=== PATIENT | male | born 1945 | race Asian ===

== ENCOUNTER 2017-12-15 16:22 | Inpatient (IN) | payer BC ==
[2017-12-15] MEDS: SODIUM CHLORIDE 0.9% 1L BAG IV* (17:10)
[2017-12-15] MEDS: CEFTRIAXONE 1 GM/50 ML (PMX) 50 ML IVPB (17:10)
[2017-12-15] MEDS: ONDANSETRON 4 MG INJ IV (17:10)
[2017-12-15 17:17] LABS: ADD MAN DIFF? NO
[2017-12-15 17:18] LABS: WHITE BLOOD COUNT 16.4 10^3/ul (4.8-10.8)
[2017-12-15 17:18] LABS: ABNORMAL IP MESSAGE 1; BASOPHIL # 0.1 10^3/ul (0.0-0.1); BASOPHILS % 0.5 % (0.0-2.0); EOSINOPHILS % 0.1 % (0.0-7.0); HEMATOCRIT 37.5 % (42.0-52.0); LYMPHOCYTES # 1.8 10^3/ul (0.8-2.9); LYMPHOCYTES % 11.2 % (15.0-51.0); MEAN CORPUSCULAR HEMOGLOBIN 30.7 pg (29.0-33.0); MEAN CORPUSCULAR HGB CONC 34.7 g/dl (32.0-37.0); MEAN CORPUSCULAR VOLUME 88.7 fl (82.0-101.0); MEAN PLATELET VOLUME 8.4 fl (7.4-10.4); MONOCYTE # 1.7 10^3/ul (0.3-0.9); MONOCYTES % 10.2 % (0.0-11.0); NEUTROPHIL # 12.8 10^3/ul (1.6-7.5); NEUTROPHILS % 77.7 % (39.0-77.0); PLATELET COUNT 241 10^3/UL (140-415); POSITIVE DIFF @See below; RED BLOOD COUNT 4.23 10^6/ul (4.70-6.10)
[2017-12-15] MEDS: ACETAMINOPHEN 325 MG TAB PO (17:19)
[2017-12-15 17:26] LABS: ADD UMIC YES; UR ASCORBIC ACID NEGATIVE (NEGATIVE); UR BILIRUBIN (Dip) NEGATIVE (NEGATIVE); UR BLOOD (Dip) 3+ mg/dL (NEGATIVE); UR CLARITY CLOUDY (CLEAR); UR COLOR YELLOW (YELLOW); UR GLUCOSE (Dip) NEGATIVE (NEGATIVE); UR KETONES (Dip) NEGATIVE (NEGATIVE); UR LEUKOCYTE ESTERASE (Dip) 3+ Leu/ul (NEGATIVE); UR MUCUS FEW /HPF (NONE SEEN); UR NITRITE (Dip) NEGATIVE (NEGATIVE); UR RBC 67 /HPF (0-5); UR SPECIFIC GRAVITY (Dip) 1.013 (1.003-1.030); UR TOTAL PROTEIN (Dip) 2+ mg/dl (NEGATIVE); UR UROBILINOGEN (Dip) 1+ mg/dL (NEGATIVE); UR WBC > 182 /HPF (0-5)
[2017-12-15 17:37] LABS: PROTIME 13.3 Sec (11.9-14.9)
[2017-12-15 17:38] LABS: PARTIAL THROMBOPLASTIN TIME 28.9 Sec (25.0-35.0)
[2017-12-15 18:23] LABS: ALANINE AMINOTRANSFERASE 140 IU/L (13-69); ALBUMIN 4.3 g/dl (3.3-4.9); ALBUMIN/GLOBULIN RATIO 1.26; ALKALINE PHOSPHATASE 133 IU/L (42-121); ANION GAP 19 (8-16); ASPARTATE AMINO TRANSFERASE 132 IU/L (15-46); BILIRUBIN,INDIRECT 0.7 mg/dl (0-1.1); BILIRUBIN,TOTAL 0.7 mg/dl (0.2-1.3); BLOOD UREA NITROGEN 17 mg/dl (7-20); CALCIUM 9.5 mg/dl (8.4-10.2); CARBON DIOXIDE 23 mmol/L (21-31); CHLORIDE 101 mmol/L (97-110); CREATININE 1.73 mg/dl (0.61-1.24); GLUCOSE 136 mg/dl (70-220); POTASSIUM 3.5 mmol/L (3.5-5.1); SODIUM 139 mmol/L (135-144); TOTAL PROTEIN 7.7 g/dl (6.1-8.1)
[2017-12-15] MEDS ORDERED: ACETAMINOPHEN 325 MG TAB PO (18:30)
[2017-12-15] MEDS ORDERED: ONDANSETRON 4 MG INJ IV (18:30)
[2017-12-15 18:34] LABS: LACTIC ACID 2.4 mmol/L (0.5-2.0)
[2017-12-15 18:35] LABS: TROPONIN-I < 0.010 ng/ml (0.000-0.120)
[2017-12-15] MEDS ORDERED: NACL 0.9% 3 ML SYG IV (19:30)
[2017-12-15 20:12] LABS: LACTIC ACID 0.9 mmol/L (0.5-2.0)
[2017-12-15] MEDS: MEROPENEM 1 GM/50ML(PMX) 50 ML IVPB (20:42)
[2017-12-15 21:46] LABS: LACTIC ACID 1.1 mmol/L (0.5-2.0)
[2017-12-16 06:04] LABS: ADD MAN DIFF? NO
[2017-12-16 06:13] LABS: ABNORMAL IP MESSAGE 1; BASOPHIL # 0.1 10^3/ul (0.0-0.1); BASOPHILS % 0.5 % (0.0-2.0); EOSINOPHILS % 0.1 % (0.0-7.0); HEMATOCRIT 38.2 % (42.0-52.0); LYMPHOCYTES # 1.3 10^3/ul (0.8-2.9); LYMPHOCYTES % 8.2 % (15.0-51.0); MEAN CORPUSCULAR HEMOGLOBIN 30.2 pg (29.0-33.0); MEAN CORPUSCULAR VOLUME 88.8 fl (82.0-101.0); MEAN PLATELET VOLUME 8.9 fl (7.4-10.4); MONOCYTE # 1.6 10^3/ul (0.3-0.9); MONOCYTES % 10.5 % (0.0-11.0); NEUTROPHIL # 12.4 10^3/ul (1.6-7.5); NEUTROPHILS % 80.3 % (39.0-77.0); PLATELET COUNT 251 10^3/UL (140-415); POSITIVE DIFF @See below; RED CELL DISTRIBUTION WIDTH 12.1 % (11.5-14.5)
[2017-12-16 06:13] LABS: WHITE BLOOD COUNT 15.4 10^3/ul (4.8-10.8)
[2017-12-16 06:21] LABS: ALANINE AMINOTRANSFERASE 124 IU/L (13-69); ALBUMIN/GLOBULIN RATIO 1.14; ALKALINE PHOSPHATASE 142 IU/L (42-121); ANION GAP 17 (8-16); ASPARTATE AMINO TRANSFERASE 92 IU/L (15-46); BILIRUBIN,INDIRECT 0.4 mg/dl (0-1.1); BILIRUBIN,TOTAL 0.4 mg/dl (0.2-1.3); BLOOD UREA NITROGEN 16 mg/dl (7-20); CALCIUM 9.5 mg/dl (8.4-10.2); CARBON DIOXIDE 24 mmol/L (21-31); CHLORIDE 109 mmol/L (97-110); CREATININE 1.51 mg/dl (0.61-1.24); GLUCOSE 120 mg/dl (70-220); POTASSIUM 3.5 mmol/L (3.5-5.1); SODIUM 146 mmol/L (135-144); TOTAL PROTEIN 7.5 g/dl (6.1-8.1)
[2017-12-16 07:56] LABS: HEMOGLOBIN A1C 5.5 % (0-5.9)
[2017-12-16] MEDS: MEROPENEM 1 GM/50ML(PMX) 50 ML IVPB ×2 (10:49→21:50)
[2017-12-16] MEDS: AMLODIPINE 5 MG TAB PO (20:24)
[2017-12-16] MEDS: ATORVASTATIN 20 MG TAB PO (20:25)
[2017-12-16] MEDS: LISINOPRIL 10 MG TAB PO (20:25)
[2017-12-16] MEDS: ASPIRIN (EC) 81 MG TAB PO (20:28)
[2017-12-16] MEDS ORDERED: NON-FORMULARY/PATIENT OWN MED (Latanoprost 1 DROP) BOTH EYES (21:00)
[2017-12-16] MEDS ORDERED: FLUOCINONIDE 0.05% 60 GM OINT TOP (21:00)
[2017-12-16] MEDS: FLUOCINONIDE 0.05% 15 GM OINT TOP (21:50)
[2017-12-16] MEDS: BRIMONIDINE 0.2% 5 ML BTL BOTH EYES (21:50)
[2017-12-16] MEDS: LATANOPROST 0.005% 2.5 ML OPH BOTH EYES (22:23)
[2017-12-17] MEDS: MEROPENEM 1 GM/50ML(PMX) 50 ML IVPB ×2 (08:28→20:23)
[2017-12-17] MEDS: BRIMONIDINE 0.2% 5 ML BTL BOTH EYES ×2 (08:28→20:25)
[2017-12-17] MEDS: FLUOCINONIDE 0.05% 15 GM OINT TOP ×2 (08:29→20:24)
[2017-12-17] MEDS: LISINOPRIL 10 MG TAB PO (08:29)
[2017-12-17] MEDS: ASPIRIN (EC) 81 MG TAB PO (08:29)
[2017-12-17] MEDS: AMLODIPINE 5 MG TAB PO (08:29)
[2017-12-17] MEDS: ATORVASTATIN 20 MG TAB PO (20:23)
[2017-12-17] MEDS: LATANOPROST 0.005% 2.5 ML OPH BOTH EYES (20:25)
[2017-12-18] MEDS: LISINOPRIL 10 MG TAB PO (10:03)
[2017-12-18] MEDS: ASPIRIN (EC) 81 MG TAB PO (10:03)
[2017-12-18] MEDS: AMLODIPINE 5 MG TAB PO (10:03)
[2017-12-18] MEDS: BRIMONIDINE 0.2% 5 ML BTL BOTH EYES (10:04)
[2017-12-18] MEDS: FLUOCINONIDE 0.05% 15 GM OINT TOP (10:05)
[2017-12-18] MEDS: MEROPENEM 1 GM/50ML(PMX) 50 ML IVPB (10:06)
== END 2017-12-18 14:25 | disposition home or self-care (01) | DRG 690 ==
LOC: MS2 18:07 → E/R 16:22 → MS2 12-16 20:15
DX: N39.0 Urinary tract infection, site not specified (principal); B96.20 Unspecified Escherichia coli [E. coli] as the cause of diseases classified elsewhere; Z16.24 Resistance to multiple antibiotics; I10 Essential (primary) hypertension; Z16.11 Resistance to penicillins; Z16.23 Resistance to quinolones and fluoroquinolones; Z16.19 Resistance to other specified beta lactam antibiotics
CPT/HCPCS: 36415; 71045; 80053; 81001; 83036; 83605; 84484; 85025; 85610; 85730; 87040; 87086; 93005; 96374; 96375; 99291-25